=== PATIENT | male | born 1970 | race African-American/Black ===

== ENCOUNTER → 2018-01-13 | Outpatient (CLI) | payer MEDICARE, OTHER ==
--- NOTE | 2018-01-13 14:14 | Diagnostic Imaging Report ---
PROCEDURE:ABDOMINAL ULTRASOUND COMPARISON:None. INDICATIONS:Abdomen ascites FINDINGS: Liver: 13.8 cm in length in the right midclavicular line. Normal hepatic parenchymal echogenicity. No focal mass. Main portal vein: 0.9 cm in caliber. Hepatopetal flow. Gallbladder: No shadowing calculus, wall thickening, or pericholecystic fluid. Common Bile Duct: 0.4 cm in caliber. No echogenic filling defect. Sonographic Hernandez's sign: Reported as negative. Right kidney: Diminutive, measuring 4.8 cm in length, with an echogenic thin cortex. Left kidney: 12.4 cm in length. No solid or cystic mass, echogenic calculi, or hydronephrosis. Normal renal cortical echogenicity. Spleen: 9 cm in length. Uniform parenchymal echotexture. Pancreas: The visualized portions of the pancreas are normal. Inferior vena cava: Patent. Aorta: Non-aneurysmal. Ascites: None. CONCLUSION: Atrophic right kidney. Otherwise unremarkable abdominal ultrasound. No evidence of ascites per clinical query. Dictated by: Sotero Lee M.D. on 01/13/2018 at 14:18 Electronically approved by: Sotero Lee M.D. on 01/13/2018 at 14:18
== END ==
LOC: US 13:06
PROVIDERS: ATTEND Internal Medicine Interventional Cardiology
DX: R18.8 Other ascites (principal); N26.1 Atrophy of kidney (terminal)
CPT/HCPCS: 76700